=== PATIENT | male | born 1970 | race Caucasian/White ===

== ENCOUNTER 2018-08-08 15:00 | Observation (INO) | payer BC ==
[2018-08-08] MEDS ORDERED: Sodium Chloride 0.9% 1,000 ML IV ONE (15:05)
--- NOTE | 2018-08-08 15:10 | EDM.PDOC ---
ED HPI GENERAL MEDICAL PROBLEM - General Chief Complaint: Chest Pain Stated Complaint: CHEST PAIN Time Seen by Provider: 08/08/18 15:06 Source of Information: Reports: Patient History Limitations: Reports: No Limitations - History of Present Illness INITIAL COMMENTS - FREE TEXT/NARRATIVE: HISTORY AND PHYSICAL: History of present illness: Patient is a 48-year-old male who presents to the emergency room today with complaints of left-sided chest pain 2 days. He states that he had eaten his 's chili and thought he had some indigestion but it has not subsided. He says he has had some slight shortness of breath and dizziness associated with this. States that nothing makes the pain better or worse. He denies any fever, chills, cough, abdominal pain, nausea, vomiting, diarrhea or constipation. No history of smoking. Denies any alcohol or drug abuse. Patient has a past medical history of heart attack 2, pericarditis, hypertension and ADHD. He states he is from [place] and has not seen a credit portfolio advisor in over 7 years. Does not have a primary care provider or credit portfolio advisor here in [place]. Review of systems: As per history of present illness and below otherwise all systems reviewed and negative. Past medical history: As per history of present illness and as reviewed below otherwise noncontributory. Surgical history: As per history of present illness and as reviewed below otherwise noncontributory. Social history: No reported history of drug or alcohol abuse. Family history: As per history of present illness and as reviewed below otherwise noncontributory. Physical exam: General: Well-developed and well-nourished 48-year-old male. Alert and oriented. Nontoxic appearing and in no acute distress. HEENT: Atraumatic, normocephalic, pupils equal and reactive bilaterally, negative for conjunctival pallor or scleral icterus, mucous membranes moist, throat clear, neck supple, nontender, trachea midline. No drooling or trismus noted. No meningeal signs Lungs: Clear to auscultation, breath sounds equal bilaterally, chest nontender. Heart: S1S2, regular rate and rhythm without overt murmur Abdomen: Soft, nondistended, no tenderness to the epigastrium. Negative for masses or hepatosplenomegaly. Negative for costovertebral tenderness. Pelvis: Stable nontender. Genitourinary: Deferred. Rectal: Deferred. Skin: Intact, warm, dry. No lesions or rashes noted. Extremities: Atraumatic, moves all extremities per self without difficulty or deficits, negative for cords or calf pain. Neurovascular unremarkable. Neuro: Awake, alert, oriented. Cranial nerves II through XII unremarkable. Cerebellum unremarkable. Motor and sensory unremarkable throughout. Exam nonfocal. Notes: Patient has an allergy to aspirin. Will give the nitroglycerin at this time. Patient did get relief with the nitroglycerin sublingual. Chest x-ray shows mild elevation of the right hemidiaphragm. Lungs otherwise clear. Heart is normal size. Otherwise negative x-ray without acute disease. Lab work is unremarkable. Vital signs are stable. Patient is unable to take any NSAIDs, per , as he does have an allergic reaction to these. Patient's pain is now a 2 out of 10. Pain was previously a 0 out of 10. Morphine given. He is now pain-free. We discussed admission, patient and at bedside with like to stay overnight for observation. Dr. Luna ( [facility]) as consult did on this case. He is agreeable to keeping this patient overnight. Vital signs remain stable. Denies any further questions or concerns at this time. Diagnostics: CBC, CMP, troponin, EKG, one view chest, h.pylori Therapeutics: IV fluid, nitroglycerin, GI cocktail Impression: Chest pain r/o KS Plan: Observation admission to [facility] with telemetry Definitive disposition and diagnosis as appropriate pending reevaluation and review of above. Duration: Day(s): Location: Reports: Chest Chest Pain Score (Numeric/FACES): 7 - Related Data Allergies Allergy/AdvReac Type Severity Reaction Status Date / Time aspirin Allergy Hives Verified 08/08/18 15:07 Penicillins Allergy Hives Verified 08/08/18 15:07 Home Meds: Home Meds Dextroamphetamine/Amphetamine [Adderall 20 mg Tablet] 20 mg PO BID 08/08/18 [ History] ED ROS GENERAL - Review of Systems Review Of Systems: ROS reveals no pertinent complaints other than HPI. ED EXAM, GENERAL - Physical Exam Exam: See Below (See dictation) Course - Vital Signs Last Recorded V/S: Last Vital Signs Temp 98.1 F 08/08/18 15:04 Pulse 80 08/08/18 15:04 Resp 18 08/08/18 15:04 BP 112/63 08/08/18 15:51 Pulse Ox 98 08/08/18 15:04 - Orders/Labs/Meds Orders: Active Orders 24 hr Category Date Time Status Admission Status [Patient Status] [ADT] Stat ADT 08/08/18 16:13 Ordered EKG Documentation Completion [RC] STAT Care 08/08/18 15:05 Active Chest 1V Frontal [CR] Stat Exams 08/08/18 15:05 Taken Sodium Chloride 0.9% [Normal Saline] 1,000 ml Med 08/08/18 15:05 Active IV STAT Medication Orders Sodium Chloride (Normal Saline) 1,000 mls @ 250 mls/hr IV STAT ONE Stop: 08/08/18 19:04 Last Admin: 08/08/18 15:27 Dose: 250 mls/hr Labs: Laboratory Tests 08/08/18 08/08/18 08/08/18 Range/Units 15:08 15:08 15:08 WBC 14.64 H (4.0-11.0) K/uL RBC 5.24 (4.50-5.90) M/uL Hgb 14.9 (13.0-17.0) g/dL Hct 44.4 (38.0-50.0) % MCV 84.7 (80.0-98.0) fL MCH 28.4 (27.0-32.0) pg MCHC 33.6 (31.0-37.0) g/dL RDW Std Deviation 39.4 (28.0-62.0) fl RDW Coeff of Jacqueline 13 (11.0-15.0) % Plt Count 349 (150-400) K/uL MPV 8.90 (7.40-12.00) fL Neut % (Auto) 68.9 (48.0-80.0) % Lymph % (Auto) 22.3 (16.0-40.0) % [place] % (Auto) 5.4 (0.0-15.0) % Eos % (Auto) 2.8 (0.0-7.0) % Baso % (Auto) 0.6 (0.0-1.5) % Neut # (Auto) 10.1 H (1.4-5.7) K/uL Lymph # (Auto) 3.3 H (0.6-2.4) K/uL [place] # (Auto) 0.8 (0.0-0.8) K/uL Eos # (Auto) 0.4 (0.0-0.7) K/uL Baso # (Auto) 0.1 (0.0-0.1) K/uL Nucleated RBC % 0.0 /100WBC Nucleated RBCs # 0 K/uL Sodium 137 (136-148) mmol/L Potassium 3.9 (3.5-5.1) mmol/L Chloride 101 (98-107) mmol/L Carbon Dioxide 25.8 (21.0-32.0) mmol/L BUN 14 (7.0-18.0) mg/dL Creatinine 1.1 (0.8-1.3) mg/dL Est Cr Clr Drug Dosing 93.82 mL/min Estimated GFR (MDRD) > 60.0 ml/min Glucose 113 H (74-106) mg/dL Calcium 8.9 (8.5-10.1) mg/dL Total Bilirubin 0.3 (0.2-1.0) mg/dL AST 18 (15-37) IU/L ALT 40 (14-63) IU/L Alkaline Phosphatase 113 (46-116) U/L Troponin I < 0.050 (0.000-0.056) ng/mL Total Protein 8.0 (6.4-8.2) g/dL Albumin 3.9 (3.4-5.0) g/dL Globulin 4.1 H (2.0-3.5) g/dL Albumin/Globulin Ratio 1.0 L (1.3-2.8) H. pylori IgG Antibody NEGATIVE (NEG) Meds: Medications Generic Name Dose Route Start Last Admin Trade Name Freq PRN Reason Stop Dose Admin Sodium Chloride 1,000 mls @ 250 mls/hr 08/08/18 15:05 08/08/18 15:27 Normal Saline IV 08/08/18 19:04 250 mls/hr STAT ONE Administration Discontinued Medications Generic Name Dose Route Start Last Admin Trade Name Freq PRN Reason Stop Dose Admin Al Hydroxide/Mg Hydroxide 15 0 ml 08/08/18 15:32 08/08/18 15:46 ml/ Metoclopramide HCl 5 mg/ PO 08/08/18 15:33 1 each Lidocaine HCl 5 ml ONETIME ONE Administration Morphine Sulfate 2 mg 08/08/18 15:58 Morphine IVPUSH 08/08/18 15:59 ONETIME ONE Nitroglycerin 0.4 mg 08/08/18 15:05 08/08/18 15:51 Nitrostat SL 0.4 mg Q5M PRN Administration Chest Pain Departure - Departure Time of Disposition: 16:16 Disposition: Refer to Observation Clinical Impression: Chest pain, rule out acute myocardial infarction Referrals: Mainor Thomson MD [Primary Care Provider] - Forms: ED Department Discharge - My Orders Last 24 Hours: My Active Orders 08/08/18 15:05 EKG Documentation Completion [RC] STAT Chest 1V Frontal [CR] Stat Sodium Chloride 0.9% [Normal Saline] 1,000 ml IV STAT 08/08/18 16:13 Admission Status [Patient Status] [ADT] Stat - Assessment/Plan Last 24 Hours: My Active Orders 08/08/18 15:05 EKG Documentation Completion [RC] STAT Chest 1V Frontal [CR] Stat Sodium Chloride 0.9% [Normal Saline] 1,000 ml IV STAT 08/08/18 16:13 Admission Status [Patient Status] [ADT] Stat
[2018-08-08] MEDS: Nitroglycerin 0.4 MG Tab.SL SL PRN ×3 (15:28→15:51)
[2018-08-08] MEDS ORDERED: Alum Hydrox/Mag Hydrox/Simeth 15 ML, Metoclopramide 5 MG, Lidocaine 2% 5 ML PO ONE ×3 (15:32)
[2018-08-08 15:44] LABS: CHLORIDE,CL 101 mmol/L (98-107); SODIUM,NA 137 mmol/L (136-148)
[2018-08-08] MEDS ORDERED: Morphine 2 MG/ML Syringe IVPUSH ONE (15:58)
[2018-08-08] MEDS ORDERED: Ondansetron 4 MG/2 ML SDV IVPUSH PRN (17:13)
[2018-08-08] MEDS ORDERED: Enoxaparin 40 MG/0.4 ML Syringe SUBCUT ONE (17:13)
[2018-08-08] MEDS ORDERED: Nitroglycerin 0.4 MG Tab.SL SL PRN (17:13)
[2018-08-08] MEDS ORDERED: Acetaminophen 325 MG Tab PO PRN (17:13)
--- NOTE | 2018-08-08 17:22 | PCM.HP ---
H&P History of Present Illness - General Date of Service: 08/08/18 Admit Problem/Dx: Admission Diagnosis/Problem Admission Diagnosis/Problem Chest pain, rule out acute myocardial infarction - History of Present Illness Initial Comments - Free Text/Narative: The patient is a 48-year-old male with history of pericarditis and NC 10 years ago who presented to the ER with chest pain. He reports a left-sided sharp pressure, nonradiating, for the past few days that is pretty much constant but getting worse. He has associated shortness of breath but no diaphoresis or nausea/vomiting. He reports the pain is positional and worse when he lays down flat or takes a deep breath. He denies any fever, chills or cough. He notes that the chest pain, coincides with an increase of stress at work. He reports he's been working 18-20 hour days. In the ER, he was giving her 3 doses of nitroglycerin with little effect. A GI cocktail that did not help and morphine that helped a little bit. In the ER, they also did lab work that showed a negative troponin, negative H. pylori and slightly elevated white count. An EKG showed sinus rhythm with mild ST elevation throughout suggestive of acute pericarditis. Chest x-ray showed mild elevation of the right hemidiaphragm but the lungs were clear and heart was normal in size. Chest Pain Score (Numeric/FACES): 7 - Related Data Allergies/Adverse Reactions: Allergies Allergy/AdvReac Type Severity Reaction Status Date / Time aspirin Allergy Hives Verified 08/08/18 15:07 Penicillins Allergy Hives Verified 08/08/18 15:07 Home Medications: Home Meds Dextroamphetamine/Amphetamine [Adderall 20 mg Tablet] 20 mg PO BID 08/08/18 [ History] Past Medical History HEENT History: Reports: Impaired Vision Other HEENT History: wears glasses Cardiovascular History: Reports: NC, Other (See Below) Other Cardiovascular History: pericarditis Respiratory History: Reports: None Gastrointestinal History: Reports: None Genitourinary History: Reports: None Musculoskeletal History: Reports: None Neurological History: Reports: Concussion Psychiatric History: Reports: ADHD Endocrine/Metabolic History: Reports: None Hematologic History: Reports: None Immunologic History: Reports: None Oncologic (Cancer) History: Reports: None Dermatologic History: Reports: None - Infectious Disease History Infectious Disease History: Reports: Chicken Pox - Past Surgical History GI Surgical History: Reports: Appendectomy Social & Family History - Tobacco Use Smoking Status *Q: Never Smoker - Caffeine Use Caffeine Use: Reports: Coffee, Energy Drinks, Soda, Tea - Alcohol Use Alcohol Use History: Yes Alcohol Use Comment: 6 pack of beer in one month - Recreational Drug Use Recreational Drug Use: No H&P Review of Systems - Review of Systems: Review Of Systems: See Below General: Reports: No Symptoms HEENT: Reports: No Symptoms Pulmonary: Reports: Pleuritic Chest Pain. Denies: Shortness of Breath, Wheezing , Cough Cardiovascular: Reports: Chest Pain. Denies: Palpitations, Orthopnea, Edema Gastrointestinal: Reports: No Symptoms Genitourinary: Reports: No Symptoms Musculoskeletal: Reports: No Symptoms Skin: Reports: No Symptoms Psychiatric: Reports: No Symptoms Neurological: Reports: No Symptoms Hematologic/Lymphatic: Reports: No Symptoms Immunologic: Reports: No Symptoms Exam - Exam Exam: See Below - Vital Signs Vital Signs: Last Vital Signs Temp 98.1 F 08/08/18 15:04 Pulse 80 08/08/18 15:04 Resp 18 08/08/18 15:04 BP 112/63 08/08/18 15:51 Pulse Ox 98 08/08/18 15:04 Weight: 108.862 kg - Exam General: Alert, Oriented, Cooperative HEENT: Conjunctiva Clear, EOMI, Mucosa Moist & [place], Posterior Pharynx Clear, Pupils Equal, Pupils Reactive Lungs: Clear to Auscultation, Normal Respiratory Effort Cardiovascular: Regular Rate, Regular Rhythm GI/Abdominal Exam: Normal Bowel Sounds, Soft, No Distention, Tender (LUQ at ribcage) Extremities: Normal Inspection, No Pedal Edema Skin: Warm, Dry, Intact Neurological: Cranial Nerves Intact Neuro Extensive - Mental Status: Alert, Oriented x3 Psychiatric: Alert, Normal Affect, Normal Mood - Patient Data Lab Results Last 24 hrs: Laboratory Results - last 24 hr 08/08/18 08/08/18 08/08/18 Range/Units 15:08 15:08 15:08 WBC 14.64 H (4.0-11.0) K/uL RBC 5.24 (4.50-5.90) M/uL Hgb 14.9 (13.0-17.0) g/dL Hct 44.4 (38.0-50.0) % MCV 84.7 (80.0-98.0) fL MCH 28.4 (27.0-32.0) pg MCHC 33.6 (31.0-37.0) g/dL RDW Std Deviation 39.4 (28.0-62.0) fl RDW Coeff of Jacqueline 13 (11.0-15.0) % Plt Count 349 (150-400) K/uL MPV 8.90 (7.40-12.00) fL Neut % (Auto) 68.9 (48.0-80.0) % Lymph % (Auto) 22.3 (16.0-40.0) % [place] % (Auto) 5.4 (0.0-15.0) % Eos % (Auto) 2.8 (0.0-7.0) % Baso % (Auto) 0.6 (0.0-1.5) % Neut # (Auto) 10.1 H (1.4-5.7) K/uL Lymph # (Auto) 3.3 H (0.6-2.4) K/uL [place] # (Auto) 0.8 (0.0-0.8) K/uL Eos # (Auto) 0.4 (0.0-0.7) K/uL Baso # (Auto) 0.1 (0.0-0.1) K/uL Nucleated RBC % 0.0 /100WBC Nucleated RBCs # 0 K/uL Sodium 137 (136-148) mmol/L Potassium 3.9 (3.5-5.1) mmol/L Chloride 101 (98-107) mmol/L Carbon Dioxide 25.8 (21.0-32.0) mmol/L BUN 14 (7.0-18.0) mg/dL Creatinine 1.1 (0.8-1.3) mg/dL Est Cr Clr Drug Dosing 93.82 mL/min Estimated GFR (MDRD) > 60.0 ml/min Glucose 113 H (74-106) mg/dL Calcium 8.9 (8.5-10.1) mg/dL Total Bilirubin 0.3 (0.2-1.0) mg/dL AST 18 (15-37) IU/L ALT 40 (14-63) IU/L Alkaline Phosphatase 113 (46-116) U/L Troponin I < 0.050 (0.000-0.056) ng/mL Total Protein 8.0 (6.4-8.2) g/dL Albumin 3.9 (3.4-5.0) g/dL Globulin 4.1 H (2.0-3.5) g/dL Albumin/Globulin Ratio 1.0 L (1.3-2.8) H. pylori IgG Antibody NEGATIVE (NEG) Result Diagrams: 08/08/18 15:08 08/08/18 15:08 Problem List Initiated/Reviewed/Updated: Yes Orders Last 24hrs: Active Orders 24 hr Category Date Time Status Admission Status [Patient Status] [ADT] Stat ADT 08/08/18 16:13 Active EKG Documentation Completion [RC] STAT Care 08/08/18 15:05 Active Intake and Output [RC] ASDIRECTED Care 08/08/18 17:13 Ordered Vital Signs [RC] PER UNIT ROUTINE Care 08/08/18 17:13 Ordered Heart Healthy Diet [DIET] Diet 08/09/18 Breakfast Ordered Chest 1V Frontal [CR] Stat Exams 08/08/18 15:05 Taken BASIC METABOLIC PANEL,BMP [CHEM] AM Lab 08/09/18 05:11 Ordered C-REACTIVE PROTEIN [CHEM] Routine Lab 08/08/18 17:13 Ordered CBC WITH AUTO DIFF [HEME] AM Lab 08/09/18 05:11 Ordered SEDIMENTATION RATE AUTO [HEME] Routine Lab 08/08/18 17:13 Ordered TROPONIN I [CHEM] Routine Lab 08/08/18 23:00 Ordered TROPONIN I [CHEM] Routine Lab 08/09/18 07:00 Ordered Acetaminophen [Tylenol] Med 08/08/18 17:13 Ordered 650 mg PO Q4H PRN Enoxaparin [Lovenox] Med 08/08/18 17:13 Once 40 mg SUBCUT ONETIME ONE Nitroglycerin [Nitrostat] Med 08/08/18 17:13 Ordered 0.4 mg SL Q5M PRN Ondansetron [Zofran] Med 08/08/18 17:13 Ordered 4 mg IVPUSH Q4H PRN Sodium Chloride 0.9% [Normal Saline] 1,000 ml Med 08/08/18 15:05 Active IV STAT Resuscitation Status Routine Resus Stat 08/08/18 17:13 Ordered Medication Orders Acetaminophen (Tylenol) 650 mg PO Q4H PRN PRN Reason: Pain (Mild 1-3)/fever Enoxaparin Sodium (Lovenox) 40 mg SUBCUT ONETIME ONE Stop: 08/08/18 17:14 Sodium Chloride (Normal Saline) 1,000 mls @ 250 mls/hr IV STAT ONE Stop: 08/08/18 19:04 Last Admin: 08/08/18 15:27 Dose: 250 mls/hr Nitroglycerin (Nitrostat) 0.4 mg SL Q5M PRN PRN Reason: Chest Pain Ondansetron HCl (Zofran) 4 mg IVPUSH Q4H PRN PRN Reason: Nausea/Vomiting Assessment/Plan Comment:: 1. Admit for observation 2. Code status- full 3. Vitals per routine 4. I/Os per routine 5. Diet- heart healthy 6. DVT prophylaxis- Lovenox 7. Chest pain, ACS rule out, possible pericarditis- Will palce the patient on telemetry and trend troponins. Will get a ESR and CRP now. Nitro for chest pain. Tylenol and Zofran as needed.
[2018-08-08] MEDS: Morphine 4 MG/ML Syringe IVPUSH PRN (20:04)
[2018-08-09] MEDS: Morphine 4 MG/ML Syringe IVPUSH PRN (00:55)
[2018-08-09 07:44] LABS: CHLORIDE,CL 104 mmol/L (98-107); SODIUM,NA 138 mmol/L (136-148)
--- NOTE | 2018-08-09 11:49 | PCM.PN ---
- General Info Date of Service: 08/09/18 - Review of Systems Systems Review Comment:: He feels better and would like to go home. He still has anterior chest pain worse when supine. He had prior pericarditis with pericardial effusion requiring drainage. - Patient Data Vitals - Most Recent: Last Vital Signs Temp 97.9 F 08/09/18 11:31 Pulse 62 08/09/18 11:31 Resp 16 08/09/18 11:31 BP 121/75 08/09/18 11:31 Pulse Ox 95 08/09/18 11:31 Weight - Most Recent: 108.862 kg I&O - Last 24 Hours: Intake & Output 08/08/18 08/09/18 08/09/18 22:59 06:59 14:59 Intake Total 1500 Output Total 550 Balance 950 Lab Results Last 24 Hours: Laboratory Results - last 24 hr 08/08/18 08/08/18 08/08/18 Range/Units 15:08 15:08 15:08 WBC 14.64 H (4.0-11.0) K/uL RBC 5.24 (4.50-5.90) M/uL Hgb 14.9 (13.0-17.0) g/dL Hct 44.4 (38.0-50.0) % MCV 84.7 (80.0-98.0) fL MCH 28.4 (27.0-32.0) pg MCHC 33.6 (31.0-37.0) g/dL RDW Std Deviation 39.4 (28.0-62.0) fl RDW Coeff of Jacqueline 13 (11.0-15.0) % Plt Count 349 (150-400) K/uL MPV 8.90 (7.40-12.00) fL Neut % (Auto) 68.9 (48.0-80.0) % Lymph % (Auto) 22.3 (16.0-40.0) % [place] % (Auto) 5.4 (0.0-15.0) % Eos % (Auto) 2.8 (0.0-7.0) % Baso % (Auto) 0.6 (0.0-1.5) % Neut # (Auto) 10.1 H (1.4-5.7) K/uL Lymph # (Auto) 3.3 H (0.6-2.4) K/uL [place] # (Auto) 0.8 (0.0-0.8) K/uL Eos # (Auto) 0.4 (0.0-0.7) K/uL Baso # (Auto) 0.1 (0.0-0.1) K/uL Nucleated RBC % 0.0 /100WBC Nucleated RBCs # 0 K/uL ESR (0-14) mm/hr Sodium 137 (136-148) mmol/L Potassium 3.9 (3.5-5.1) mmol/L Chloride 101 (98-107) mmol/L Carbon Dioxide 25.8 (21.0-32.0) mmol/L BUN 14 (7.0-18.0) mg/dL Creatinine 1.1 (0.8-1.3) mg/dL Est Cr Clr Drug Dosing 93.82 mL/min Estimated GFR (MDRD) > 60.0 ml/min Glucose 113 H (74-106) mg/dL Calcium 8.9 (8.5-10.1) mg/dL Total Bilirubin 0.3 (0.2-1.0) mg/dL AST 18 (15-37) IU/L ALT 40 (14-63) IU/L Alkaline Phosphatase 113 (46-116) U/L Troponin I < 0.050 (0.000-0.056) ng/mL C-Reactive Protein (0.00-0.90) mg/dL Total Protein 8.0 (6.4-8.2) g/dL Albumin 3.9 (3.4-5.0) g/dL Globulin 4.1 H (2.0-3.5) g/dL Albumin/Globulin Ratio 1.0 L (1.3-2.8) H. pylori IgG Antibody NEGATIVE (NEG) 08/08/18 08/08/18 08/08/18 Range/Units 15:08 15:08 23:01 WBC (4.0-11.0) K/uL RBC (4.50-5.90) M/uL Hgb (13.0-17.0) g/dL Hct (38.0-50.0) % MCV (80.0-98.0) fL MCH (27.0-32.0) pg MCHC (31.0-37.0) g/dL RDW Std Deviation (28.0-62.0) fl RDW Coeff of Jacqueline (11.0-15.0) % Plt Count (150-400) K/uL MPV (7.40-12.00) fL Neut % (Auto) (48.0-80.0) % Lymph % (Auto) (16.0-40.0) % [place] % (Auto) (0.0-15.0) % Eos % (Auto) (0.0-7.0) % Baso % (Auto) (0.0-1.5) % Neut # (Auto) (1.4-5.7) K/uL Lymph # (Auto) (0.6-2.4) K/uL [place] # (Auto) (0.0-0.8) K/uL Eos # (Auto) (0.0-0.7) K/uL Baso # (Auto) (0.0-0.1) K/uL Nucleated RBC % /100WBC Nucleated RBCs # K/uL ESR 3 (0-14) mm/hr Sodium (136-148) mmol/L Potassium (3.5-5.1) mmol/L Chloride (98-107) mmol/L Carbon Dioxide (21.0-32.0) mmol/L BUN (7.0-18.0) mg/dL Creatinine (0.8-1.3) mg/dL Est Cr Clr Drug Dosing mL/min Estimated GFR (MDRD) ml/min Glucose (74-106) mg/dL Calcium (8.5-10.1) mg/dL Total Bilirubin (0.2-1.0) mg/dL AST (15-37) IU/L ALT (14-63) IU/L Alkaline Phosphatase (46-116) U/L Troponin I < 0.050 (0.000-0.056) ng/mL C-Reactive Protein 0.90 (0.00-0.90) mg/dL Total Protein (6.4-8.2) g/dL Albumin (3.4-5.0) g/dL Globulin (2.0-3.5) g/dL Albumin/Globulin Ratio (1.3-2.8) H. pylori IgG Antibody (NEG) 0908/09/18 08/09/18 Range/Units 06:56 06:56 06:56 WBC 10.07 (4.0-11.0) K/uL RBC 4.75 (4.50-5.90) M/uL Hgb 13.7 (13.0-17.0) g/dL Hct 40.2 (38.0-50.0) % MCV 84.6 (80.0-98.0) fL MCH 28.8 (27.0-32.0) pg MCHC 34.1 (31.0-37.0) g/dL RDW Std Deviation 39.5 (28.0-62.0) fl RDW Coeff of Jacqueline 13 (11.0-15.0) % Plt Count 290 (150-400) K/uL MPV 8.80 (7.40-12.00) fL Neut % (Auto) 61.7 (48.0-80.0) % Lymph % (Auto) 26.1 (16.0-40.0) % [place] % (Auto) 7.5 (0.0-15.0) % Eos % (Auto) 3.9 (0.0-7.0) % Baso % (Auto) 0.8 (0.0-1.5) % Neut # (Auto) 6.2 H (1.4-5.7) K/uL Lymph # (Auto) 2.6 H (0.6-2.4) K/uL [place] # (Auto) 0.8 (0.0-0.8) K/uL Eos # (Auto) 0.4 (0.0-0.7) K/uL Baso # (Auto) 0.1 (0.0-0.1) K/uL Nucleated RBC % 0.0 /100WBC Nucleated RBCs # 0 K/uL ESR (0-14) mm/hr Sodium 138 (136-148) mmol/L Potassium 4.4 (3.5-5.1) mmol/L Chloride 104 (98-107) mmol/L Carbon Dioxide 26.0 (21.0-32.0) mmol/L BUN 12 (7.0-18.0) mg/dL Creatinine 1.0 (0.8-1.3) mg/dL Est Cr Clr Drug Dosing 100.23 mL/min Estimated GFR (MDRD) > 60.0 ml/min Glucose 102 (74-106) mg/dL Calcium 8.6 (8.5-10.1) mg/dL Total Bilirubin (0.2-1.0) mg/dL AST (15-37) IU/L ALT (14-63) IU/L Alkaline Phosphatase (46-116) U/L Troponin I < 0.050 (0.000-0.056) ng/mL C-Reactive Protein (0.00-0.90) mg/dL Total Protein (6.4-8.2) g/dL Albumin (3.4-5.0) g/dL Globulin (2.0-3.5) g/dL Albumin/Globulin Ratio (1.3-2.8) H. pylori IgG Antibody (NEG) Med Orders - Current: Current Medications Acetaminophen (Tylenol) 650 mg PO Q4H PRN PRN Reason: Pain (Mild 1-3)/fever Last Admin: 08/08/18 17:23 Dose: 650 mg Morphine Sulfate (Morphine) 4 mg IVPUSH Q2H PRN PRN Reason: Chest Pain Last Admin: 08/09/18 00:55 Dose: 4 mg Nitroglycerin (Nitrostat) 0.4 mg SL Q5M PRN PRN Reason: Chest Pain Ondansetron HCl (Zofran) 4 mg IVPUSH Q4H PRN PRN Reason: Nausea/Vomiting Prednisone (Prednisone) 40 mg PO WITHBREAKFAST MARTIN Discontinued Medications Al Hydroxide/Mg Hydroxide 15 ml/ Metoclopramide HCl 5 mg/Lidocaine HCl 5 ml 0 ml PO ONETIME ONE Stop: 08/08/18 15:33 Last Admin: 08/08/18 15:46 Dose: 1 each Enoxaparin Sodium (Lovenox) 40 mg SUBCUT ONETIME ONE Stop: 08/08/18 17:14 Last Admin: 08/08/18 17:23 Dose: 40 mg Sodium Chloride (Normal Saline) 1,000 mls @ 250 mls/hr IV STAT ONE Stop: 08/08/18 19:04 Last Admin: 08/08/18 15:27 Dose: 250 mls/hr Morphine Sulfate (Morphine) 2 mg IVPUSH ONETIME ONE Stop: 08/08/18 15:59 Last Admin: 08/08/18 16:20 Dose: 2 mg Nitroglycerin (Nitrostat) 0.4 mg SL Q5M PRN PRN Reason: Chest Pain Last Admin: 08/08/18 15:51 Dose: 0.4 mg - Exam Psy/Mental Status: Alert, Normal Affect Physical Findings Comments:: alert lungs CTA heart RRR without m normal mentation EKG: NSR with slight ST elevation II III AVF slightly increased from yesterday 's EKG; slight upsloping ST elevation precordial leads - Problem List & Annotations (1) Acute pericarditis SNOMED Code(s): 45875742 Code(s): I30.9 - ACUTE PERICARDITIS, UNSPECIFIED Status: Acute Current Visit: Yes - Problem List Review Problem List Initiated/Reviewed/Updated: Yes - My Orders Last 24 Hours: My Active Orders 08/08/18 19:45 Morphine 4 mg IVPUSH Q2H PRN 08/09/18 10:12 EKG 12 Lead [EKG Documentation Completion] [RC] ROUTINE 08/09/18 11:43 TROPONIN I [CHEM] Stat 08/09/18 12:00 predniSONE 40 mg PO WITHBREAKFAST 08/10/18 08:00 Echo 2D wo Cont [US] Urgent 08/11/18 05:11 TROPONIN I [CHEM] AM - Plan Plan:: 1. Admit for observation 2. Code status- full 3. Vitals per routine 4. I/Os per routine 5. Diet- heart healthy 6. DVT prophylaxis- Lovenox 7. Chest pain, ACS rule out, possible pericarditis- Will palce the patient on telemetry and trend troponins. Will get a ESR and CRP now. Nitro for chest pain. Tylenol and Zofran as needed. 08/09/2018 repeat troponin now and in am add prednisone echo tomorrow. possible discharge tomorrow after echo EKG in am Frederick Noonan MD
[2018-08-09] MEDS ORDERED: Morphine 10 MG/ML Syringe IVPUSH PRN (12:15)
[2018-08-09] MEDS: predniSONE 20 MG Tab PO SCH (13:02)
[2018-08-10] MEDS: predniSONE 20 MG Tab PO SCH (09:11)
--- NOTE | 2018-08-10 09:47 | PCM.DCSUM1 ---
Discharge Summary - Hospital Course Brief History: HE was admitted with chest pain and clinical pericarditis. He reported a prior history of severe pericarditis. Diagnosis: Stroke: No - Discharge Data Discharge Date: 08/10/18 Discharge Disposition: Home, Self-Care 01 Condition: Good - Discharge Diagnosis/Problem(s) (1) Acute pericarditis SNOMED Code(s): 31347302 ICD Code: I30.9 - ACUTE PERICARDITIS, UNSPECIFIED Status: Acute Current Visit: Yes - Patient Summary/Data Hospital Course: EKG showed small global ST elevation, with precordial leads showing upsloping ST elevation. He was started on prednisone on August 09. He developed mild HTN after starting prednisone. His serial troponins were normal. EKG on August 09 was similar to admission EKG but showed slightly more ST elevation inferiorly. Further troponins were negative. EKG on the day of discharge shows resolution of ST elevation. His symptoms have resolved at discharge. Echocardiogram was performed the morning of discharge and reading is pending at discharge. IMpression: mild acute pericarditis NSAIDs were not given as he reports allergy prednisone 20 mg daily x 7 days follow up appointment with Dr Ryan lowery Off work until Friday. MD Belkys - Discharge Plan Home Medications: Home Meds Dextroamphetamine/Amphetamine [Adderall 20 mg Tablet] 20 mg PO TID 08/08/18 [ History] Forms: ED Department Discharge Referrals: Mainor Thomson MD [Primary Care Provider] - - Patient Data Vitals - Most Recent: Last Vital Signs Temp 97 F 08/10/18 09:13 Pulse 67 08/10/18 09:13 Resp 18 08/10/18 09:13 BP 156/89 H 08/10/18 09:13 Pulse Ox 95 08/10/18 09:13 Weight - Most Recent: 108.862 kg I&O - Last 24 hours: Intake & Output 08/09/18 08/10/18 08/10/18 22:59 06:59 14:59 Intake Total 1100 1500 Output Total 1305 1975 Balance -205 475 Lab Results - Last 24 hrs: Laboratory Results - last 24 hr 08/09/18 08/09/18 08/10/18 Range/Units 11:51 17:54 05:01 Troponin I < 0.050 < 0.050 < 0.050 (0.000-0.056) ng/mL Med Orders - Current: Current Medications Acetaminophen (Tylenol) 650 mg PO Q4H PRN PRN Reason: Pain (Mild 1-3)/fever Last Admin: 08/08/18 17:23 Dose: 650 mg Morphine Sulfate (Morphine Sulfate) 4 mg IV Q2H PRN PRN Reason: Chest Pain Last Admin: 08/09/18 23:11 Dose: 4 mg Nitroglycerin (Nitrostat) 0.4 mg SL Q5M PRN PRN Reason: Chest Pain Ondansetron HCl (Zofran) 4 mg IVPUSH Q4H PRN PRN Reason: Nausea/Vomiting Prednisone (Prednisone) 40 mg PO WITHBREAKFAST MARTIN Last Admin: 08/10/18 09:11 Dose: 40 mg Discontinued Medications Al Hydroxide/Mg Hydroxide 15 ml/ Metoclopramide HCl 5 mg/Lidocaine HCl 5 ml 0 ml PO ONETIME ONE Stop: 08/08/18 15:33 Last Admin: 08/08/18 15:46 Dose: 1 each Enoxaparin Sodium (Lovenox) 40 mg SUBCUT ONETIME ONE Stop: 08/08/18 17:14 Last Admin: 08/08/18 17:23 Dose: 40 mg Sodium Chloride (Normal Saline) 1,000 mls @ 250 mls/hr IV STAT ONE Stop: 08/08/18 19:04 Last Admin: 08/08/18 15:27 Dose: 250 mls/hr Morphine Sulfate (Morphine) 2 mg IVPUSH ONETIME ONE Stop: 08/08/18 15:59 Last Admin: 08/08/18 16:20 Dose: 2 mg Morphine Sulfate (Morphine) 4 mg IVPUSH Q2H PRN PRN Reason: Chest Pain Last Admin: 08/09/18 00:55 Dose: 4 mg Morphine Sulfate (Morphine) 4 mg IVPUSH Q2H PRN PRN Reason: Chest Pain Nitroglycerin (Nitrostat) 0.4 mg SL Q5M PRN PRN Reason: Chest Pain Last Admin: 08/08/18 15:51 Dose: 0.4 mg
--- NOTE | 2018-08-10 11:00 | CR ---
EXAM DATE: 08/08/18 PATIENT'S AGE: 48 Patient: BETZY BIRD Facility: [place], [place] Site . Site : [id number] Study: XRay Chest [id number]/[id number] 3:25:42 PM Ordering Physician: Doctor Swartz Final Report: INDICATION: Chest pain. TECHNIQUE: AP portable chest x-ray. FINDINGS: Mild elevation right hemidiaphragm. Lungs clear. Heart size normal. Chest otherwise negative without acute disease. Dictated by Viktor Peterson MD @ Aug 08 2018 3:29PM (Electronic Signature) Report Signed by Proxy. WALKER
== END 2018-08-10 11:25 | disposition home or self-care (01) ==
LOC: MW.ED 15:00 → MW.MS 16:13
PROVIDERS: ADMIT Internal Medicine; ATTEND Internal Medicine
DX: I30.9 Acute pericarditis, unspecified (principal); I10 Essential (primary) hypertension; Z88.6 Allergy status to analgesic agent; Z88.0 Allergy status to penicillin
CPT/HCPCS: 36415; 71045; 80048; 80053; 84484; 85025; 85652; 86140; 86677; 93005; 93306; 96361; 96374; 99285; A9270; J1650; J2270; J7040; 96372; 96376; G0378

== ENCOUNTER 2019-06-26 08:13 | Emergency (ER) | payer BC ==
[2019-06-26] MEDS ORDERED: Lidocaine 2% Viscous Solution 15 ML Cup PO ONE (08:32)
[2019-06-26] MEDS ORDERED: Benzocaine 20% Topical Spray UD MUCMEM ONE (08:32)
--- NOTE | 2019-06-26 08:38 | EDM.PDOC ---
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 The patient has a known history of dental issues and has clindamycin at home to use for a broken tooth on the left upper molar area which she has not been able to get fixed. When the swelling started he thought that may be a tooth was involved and he started taking the clindamycin and he has taken 2 doses. He says that after the second dose he thought that the swelling increased and he felt like there was tightness in his throat and some tightness in his chest and he thought maybe he was having allergic reaction and took Benadryl. Because of his history of pericarditis he wanted to come in and be checked. Currently on my evaluation he doesn't feel like there is tightness and has no shortness of breath no abdominal pain nausea or vomiting. He also tells me that he has a history of a salivary gland blockage and thought maybe that should be eating to this. He has no headache no sinus drainage no earache and no lip or tongue swelling. Please note that the patient did not have any chest tightness or discomfort prior to taking the clindamycin. Review of systems: As per history of present illness and below otherwise all systems reviewed and negative. Past medical history: As per history of present illness and as reviewed below otherwise noncontributory. Surgical history: As per history of present illness and as reviewed below otherwise noncontributory. Social history: No reported history of drug or alcohol abuse. Family history: As per history of present illness and as reviewed below otherwise noncontributory. Physical exam: General: Well-developed well-nourished man speaking clearly and easily without hoarse or muffled voice and not breathlessness. Vital signs were noted by me HEENT: Atraumatic, normocephalic, pupils reactive, negative for conjunctival pallor or scleral icterus, mucous membranes moist, throat clear of exudates and there is no oropharyngeal swelling, uvula is midline, there is no cervical adenopathy or nuchal rigidity , neck supple, nontender, trachea midline. there is visible facial swelling of the right maxillary area which is ill-defined and nonfluctuant. There is a broken tooth at the left upper molar area without swelling or fluctuance and in the region of the right upper premolar and molar areas there are some old fillings appreciated and no overt dental breakdown but there is gum swelling and excoriation and swelling of the buccal mucosa in this region. There is no gross tenderness. TMs are slightly dulled bilaterally and there is no overt sinus tenderness Lungs: Clear to auscultation, breath sounds equal bilaterally, chest nontender. Heart: S1S2, regular rate and rhythm no overt murmurs Abdomen: Soft, nondistended, nontender. Negative for masses or hepatosplenomegaly. Negative for costovertebral tenderness. Pelvis: Stable nontender. Genitourinary: Deferred. Rectal: Deferred. Extremities: Atraumatic, no edema Neurovascular unremarkable. Neuro: Awake, alert, oriented. Cranial nerves II through XII unremarkable. Cerebellum unremarkable. Motor and sensory unremarkable throughout. Exam nonfocal. Diagnostics: EKG Therapeutics: I discussed with the patient that if he feels uncomfortable taking the clindamycin that he has we would change his antibiotics. He and his are concerned that he may have had increased swelling as a result of it and there is some discomfort. He does have an allergy to penicillins which cause a rash so I will switch him to a cephalosporin. Impression: Right facial swelling/maxillary swelling, oral infection Definitive disposition and diagnosis as appropriate pending reevaluation and review of above. - Related Data Allergies Allergy/AdvReac Type Severity Reaction Status Date / Time aspirin Allergy Hives Verified 06/26/19 08:18 NSAIDS (Non-Steroidal Allergy Hives Verified 06/26/19 08:18 Anti-Inflamma Penicillins Allergy Hives Verified 06/26/19 08:18 Home Meds: Home Meds Dextroamphetamine/Amphetamine [Adderall 20 mg Tablet] 20 mg PO TID 08/08/18 [ History] Levofloxacin 0 mg PO BID 06/26/19 [History] Past Medical History HEENT History: Reports: Impaired Vision Other HEENT History: wears glasses Cardiovascular History: Reports: [place], Other (See Below) Other Cardiovascular History: pericarditis Respiratory History: Reports: None Gastrointestinal History: Reports: None Genitourinary History: Reports: None Musculoskeletal History: Reports: None Neurological History: Reports: Concussion Psychiatric History: Reports: ADHD Endocrine/Metabolic History: Reports: None Hematologic History: Reports: None Immunologic History: Reports: None Oncologic (Cancer) History: Reports: None Dermatologic History: Reports: None - Infectious Disease History Infectious Disease History: Reports: Chicken Pox - Past Surgical History GI Surgical History: Reports: Appendectomy Social & Family History - Tobacco Use Smoking Status *Q: Never Smoker - Caffeine Use Caffeine Use: Reports: Coffee, Energy Drinks, Soda, Tea - Recreational Drug Use Recreational Drug Use: No ED ROS GENERAL - Review of Systems Review Of Systems: ROS reveals no pertinent complaints other than HPI. ED EXAM, GENERAL - Physical Exam Exam: See Below (See dictation) Course - Vital Signs Last Recorded V/S: Last Vital Signs Temp 37.1 C 06/26/19 08:16 Pulse 64 06/26/19 08:16 Resp 16 06/26/19 08:16 BP 137/90 06/26/19 08:16 Pulse Ox 99 06/26/19 08:16 - Orders/Labs/Meds Orders: Active Orders 24 hr Category Date Time Status EKG Documentation Completion [RC] STAT Care 06/26/19 08:32 Active Meds: Medications Discontinued Medications Generic Name Dose Route Start Last Admin Trade Name Matheus PRN Reason Stop Dose Admin Benzocaine 2 each 06/26/19 08:32 Hurricaine One 20% MUCMEM 06/26/19 08:33 ONETIME ONE Lidocaine HCl 15 ml 06/26/19 08:32 Xylocaine 2% Viscous PO 06/26/19 08:33 ONETIME ONE Departure - Departure Time of Disposition: 08:38 Disposition: Home, Self-Care 01 Condition: Good Clinical Impression: Oral infection - Discharge Information Referrals: PCP,None [Primary Care Provider] - Additional Instructions: The following information is given to patients seen in the emergency department who are being discharged to home. This information is to outline your options for follow-up care. We provide all patients seen in our emergency department with a follow-up referral. The need for follow-up, as well as the timing and circumstances, are variable depending upon the specifics of your emergency department visit. If you don't have a primary care physician on staff, we will provide you with a referral. We always advise you to contact your personal physician following an emergency department visit to inform them of the circumstance of the visit and for follow-up with them and/or the need for any referrals to a consulting specialist. The emergency department will also refer you to a specialist when appropriate. This referral assures that you have the opportunity for followup care with a specialist. All of these measure are taken in an effort to provide you with optimal care, which includes your followup. Under all circumstances we always encourage you to contact your private physician who remains a resource for coordinating your care. When calling for followup care, please make the office aware that this follow-up is from your recent emergency room visit. If for any reason you are refused follow-up, please contact the [facility] emergency department at and ask to speak to the emergency department charge nurse. [facility] Primary care- [place] [address] Ice to face for swelling and continue to use sour candies to promote salivary drainage. Switch the antibiotic to the newly prescribed 1 and contact your provider in the clinic for reevaluation and further care as well as your dentist. Return to ER as needed and as discussed - My Orders Last 24 Hours: My Active Orders 06/26/19 08:32 EKG Documentation Completion [RC] STAT - Assessment/Plan Last 24 Hours: My Active Orders 06/26/19 08:32 EKG Documentation Completion [RC] STAT
== END 2019-06-26 08:55 | disposition home or self-care (01) ==
LOC: MW.ED 08:13
DX: K13.79 Other lesions of oral mucosa (principal); Z88.6 Allergy status to analgesic agent; Z88.0 Allergy status to penicillin; Z88.8 Allergy status to other drugs, medicaments and biological substances; F90.9 Attention-deficit hyperactivity disorder, unspecified type; I25.2 Old myocardial infarction
CPT/HCPCS: 93005; 99283; A9270

== ENCOUNTER 2021-11-17 11:02 | Emergency (ER) | payer BC, OTHER ==
[2021-11-17] MEDS ORDERED: Morphine 4 MG/ML VIAL IVPUSH ONE ×2 (11:31→12:43)
--- NOTE | 2021-11-17 11:31 | EDM.PDOC ---
ED HPI GENERAL MEDICAL PROBLEM - General Chief Complaint: Upper Extremity Injury/Pain Stated Complaint: SMASHED HAND Time Seen by Provider: 11/17/21 11:05 Source of Information: Reports: Patient History Limitations: Reports: No Limitations - History of Present Illness INITIAL COMMENTS - FREE TEXT/NARRATIVE: Patient is a 51-year-old M who presents today for left hand pain and swelling. Patient had a crush injury done yesterday had a laceration repaired. He returns today because the hand is more swollen and the swelling is going down to his mid arm and is also increased redness there as well. He denies any fevers or chills just increased pain. He was told to come back if the swelling got worse. Left Hand Pain Score (Numeric/FACES): 10 - Related Data Allergies Allergy/AdvReac Type Severity Reaction Status Date / Time aspirin Allergy Hives Verified 11/17/21 11:05 NSAIDS (Non-Steroidal Allergy Hives Verified 11/17/21 11:05 Anti-Inflamma Penicillins Allergy Hives Verified 11/17/21 11:05 Home Meds: Home Meds Dextroamphetamine/Amphetamine [Adderall 20 mg Tablet] 20 mg PO TID 08/08/18 [History] Levofloxacin 0 mg PO BID 06/26/19 [History] Clindamycin HCl 150 mg PO DAILY 11/17/21 [History] Hydrocodone/Acetaminophen [Vicodin Hp 10-300 mg Tablet] 352 mg PO DAILY 11/17/21 [History] Past Medical History HEENT History: Reports: Impaired Vision Other HEENT History: wears glasses Cardiovascular History: Reports: [place], Other (See Below) Other Cardiovascular History: pericarditis Respiratory History: Reports: None Gastrointestinal History: Reports: None Genitourinary History: Reports: None Musculoskeletal History: Reports: None Neurological History: Reports: Concussion Psychiatric History: Reports: ADHD Endocrine/Metabolic History: Reports: None Hematologic History: Reports: None Immunologic History: Reports: None Oncologic (Cancer) History: Reports: None Dermatologic History: Reports: None - Infectious Disease History Infectious Disease History: Reports: Chicken Pox - Past Surgical History GI Surgical History: Reports: Appendectomy Social & Family History - Caffeine Use Caffeine Use: Reports: Coffee, Energy Drinks, Soda, Tea - Recreational Drug Use Recreational Drug Use: No Review of Systems - Review of Systems Review Of Systems: See Below Constitutional: Reports: No Symptoms Eyes: Reports: No Symptoms Ears: Reports: No Symptoms Nose: Reports: No Symptoms Mouth/Throat: Reports: No Symptoms Respiratory: Reports: No Symptoms Cardiovascular: Reports: No Symptoms GI/Abdominal: Reports: No Symptoms Genitourinary: Reports: No Symptoms Musculoskeletal: Reports: Hand Pain Skin: Reports: No Symptoms Neurological: Reports: No Symptoms Psychiatric: Reports: No Symptoms ED EXAM, GENERAL - Physical Exam Exam: See Below Exam Limited By: No Limitations General Appearance: Alert, WD/WN, No Apparent Distress Ears: Normal External Exam Head: Atraumatic Neck: Normal Inspection Respiratory/Chest: No Respiratory Distress, Lungs Clear, Normal Breath Sounds Cardiovascular: Normal Peripheral Pulses, Regular Rate, Rhythm Peripheral Pulses: 2+: Radial (L), Radial (R) GI/Abdominal: Normal Bowel Sounds, Soft, Non-Tender Extremities: No: Normal Inspection (Hand has swelling and redness there is sutures in place that were done yesterday on the palm of the hand), Non-Tender (Diffuse tenderness of the hand to the mid forearm) Neurological: Alert, Oriented, Normal Cognition, Normal Gait Course - Vital Signs Last Recorded V/S: Last Vital Signs Temp 98.6 F 11/17/21 11:07 Pulse 76 11/17/21 13:31 Resp 18 11/17/21 11:07 BP 160/92 H 11/17/21 13:31 Pulse Ox 95 11/17/21 13:31 - Orders/Labs/Meds Orders: Active Orders 24 hr Category Date Time Status COVID-19/FLU A+B [MOLEC] Stat Lab 11/17/21 13:11 Ordered CULTURE BLOOD [BC] Stat Lab 11/17/21 11:30 Received CULTURE BLOOD [BC] Stat Lab 11/17/21 11:43 Received Pharmacy to Dose - Vancomycin Med 11/18/21 09:00 Active 1 dose .XX DAILY Blood Culture x2 Reflex Set [OM.PC] Stat Oth 11/17/21 11:27 Ordered Medication Orders Vancomycin HCl (Pharmacy To Dose - Vancomycin) 1 dose .XX DAILY MARTIN Labs: Laboratory Tests 11/17/21 11/17/21 11/17/21 Range/Units 11:30 11:30 11:30 WBC 16.47 H (4.0-11.0) K/uL RBC 4.64 (4.50-5.90) M/uL Hgb 13.4 (13.0-17.0) g/dL Hct 39.6 (38.0-50.0) % MCV 85.3 (80.0-98.0) fL MCH 28.9 (27.0-32.0) pg MCHC 33.8 (31.0-37.0) g/dL RDW Std Deviation 40.7 (28.0-62.0) fl RDW Coeff of Jacqueline 13 (11.0-15.0) % Plt Count 324 (150-400) K/uL MPV 9.00 (7.40-12.00) fL Neut % (Auto) 71.4 (48.0-80.0) % Lymph % (Auto) 14.8 L (16.0-40.0) % Whitman % (Auto) 12.4 (0.0-15.0) % Eos % (Auto) 1.0 (0.0-7.0) % Baso % (Auto) 0.4 (0.0-1.5) % Neut # (Auto) 11.8 H (1.4-5.7) K/uL Lymph # (Auto) 2.4 (0.6-2.4) K/uL Whitman # (Auto) 2.1 H (0.0-0.8) K/uL Eos # (Auto) 0.2 (0.0-0.7) K/uL Baso # (Auto) 0.1 (0.0-0.1) K/uL Nucleated RBC % 0.0 /100WBC Nucleated RBCs # 0 K/uL Sodium 138 (136-148) mmol/L Potassium 4.3 (3.5-5.1) mmol/L Chloride 102 (98-107) mmol/L Carbon Dioxide 27.9 (21.0-32.0) mmol/L BUN 9 (7.0-18.0) mg/dL Creatinine 1.0 (0.8-1.3) mg/dL Est Cr Clr Drug Dosing 97.00 mL/min Estimated GFR (MDRD) > 60.0 ml/min Glucose 128 H (74-106) mg/dL Lactic Acid 1.4 (0.4-2.0) mmol/L Calcium 8.7 (8.5-10.1) mg/dL Phosphorus 3.7 (2.6-4.7) mg/dL Magnesium 2.0 (1.8-2.4) mg/dL Total Bilirubin 0.4 (0.2-1.0) mg/dL AST 24 (15-37) IU/L ALT 44 (14-63) IU/L Alkaline Phosphatase 98 (46-116) U/L Creatine Kinase 318 H (26-308) U/L Total Protein 7.1 (6.4-8.2) g/dL Albumin 3.4 (3.4-5.0) g/dL Globulin 3.7 (2.6-4.0) g/dL Albumin/Globulin Ratio 0.9 (0.9-1.6) Meds: Medications Generic Name Dose Route Start Last Admin Trade Name Freq PRN Reason Stop Dose Admin Vancomycin HCl 1 dose 11/18/21 09:00 Pharmacy To Dose - Vancomycin .XX DAILY MARTIN Discontinued Medications Generic Name Dose Route Start Last Admin Trade Name Freq PRN Reason Stop Dose Admin Vancomycin HCl 1.75 gm/ Premix 350 mls @ 233.333 mls/hr 11/17/21 12:00 11/17/21 12:26 IV 11/17/21 13:29 233.333 mls/hr ONETIME ONE Administration Morphine Sulfate 4 mg 11/17/21 11:31 11/17/21 11:53 Morphine 4 Mg/Ml Vial IVPUSH 11/17/21 11:32 4 mg ONETIME ONE Administration Morphine Sulfate 4 mg 11/17/21 12:43 11/17/21 12:50 Morphine 4 Mg/Ml Vial IVPUSH 11/17/21 12:44 4 mg ONETIME ONE Administration - Re-Assessments/Exams Free Text/Narrative Re-Assessment/Exam: 11/17/21 13:25 We contacted our surgeon here about possible admission and watch patient in case needed fasciotomy he does not feel comfortable with things he needs to be seen somewhere with a hand surgeon we also spoke to the hospitalist here as well. We are attempting to transfer patient currently patient begin antibiotics and pain is well controlled currently 11/17/21 13:38 Patient's been accepted to [facility] and will be transferred orthopedic and ER have are notified. Departure - Departure Time of Disposition: 13:39 Disposition: DC/Tfer to Acute Hospital 02 Condition: Good Clinical Impression: Cellulitis of upper extremity, Crush injury of hand - Discharge Information *PRESCRIPTION DRUG MONITORING PROGRAM REVIEWED*: Not Applicable *COPY OF PRESCRIPTION DRUG MONITORING REPORT IN PATIENT HARRY: Not Applicable Instructions: Crush Injury of the Hand, [id number] Referrals: PCP,None [Primary Care Provider] - Forms: ED Department Discharge Sepsis Event Note (ED) - Evaluation Sepsis Screening Result: No Definite Risk - Focused Exam Vital Signs: Vital Signs Temp Pulse Resp BP Pulse Ox 11/17/21 13:31 76 160/92 H 95 11/17/21 11:07 98.6 F 73 18 151/85 H 96 - My Orders Last 24 Hours: My Active Orders 11/17/21 11:27 Blood Culture x2 Reflex Set [OM.PC] Stat 11/17/21 11:30 CULTURE BLOOD [BC] Stat 11/17/21 11:43 CULTURE BLOOD [BC] Stat 11/17/21 13:11 COVID-19/FLU A+B [MOLEC] Stat 11/18/21 09:00 Pharmacy to Dose - Vancomycin 1 dose .XX DAILY - Assessment/Plan Last 24 Hours: My Active Orders 11/17/21 11:27 Blood Culture x2 Reflex Set [OM.PC] Stat 11/17/21 11:30 CULTURE BLOOD [BC] Stat 11/17/21 11:43 CULTURE BLOOD [BC] Stat 11/17/21 13:11 COVID-19/FLU A+B [MOLEC] Stat 11/18/21 09:00 Pharmacy to Dose - Vancomycin 1 dose .XX DAILY Plan: Patient is a 51-year-old male presents today for left hand pain and swelling. He had a crush injury done yesterday. Patient had the laceration to the hand repair there is now more significant swelling. There is concern for compartment syndrome. Will check pressure start antibiotics give IV pain meds and reasse ss.
[2021-11-17] MEDS ORDERED: VANCOmycin 1.75 GM/350 ML 1.75 GM in Premix Bag 1 BAG IV ONE (12:00)
[2021-11-17 12:04] LABS: BLOOD UREA NITROGEN,BUN 9 mg/dL (7.0-18.0); CARBON DIOXIDE,CO2 27.9 mmol/L (21.0-32.0); CHLORIDE,CL 102 mmol/L (98-107); GLUCOSE RANDOM 128 mg/dL (74-106); POTASSIUM,K 4.3 mmol/L (3.5-5.1); SODIUM,NA 138 mmol/L (136-148)
--- NOTE | 2021-11-17 12:34 | CR ---
HISTORY: Crush injury. COMPARISON: None. TECHNIQUE: Left hand, 3 views. FINDINGS: Soft tissue gas is present, which is compatible with a laceration. This is seen overlying the 2nd metacarpal on the PA view. There is a fracture deformity present at the base of the left 1st distal phalanx. No additional injury is identified. No articular erosion. No periarticular osteopenia. The carpus appears intact. Mild negative ulnar variance. IMPRESSION: 1. Soft tissue swelling/gas, which is suspicious for a laceration. 2. Suspected fracture deformity involving the base of the left 1st distal phalanx. This is only seen on one view. Suggest correlation with physical exam findings. 3. Report called to Dr. Martinez, emergency department, 11/17/2021, 12:30 p.m. Dictated by René Timmons MD @ 11/17/2021 12:34:09 PM (Electronically Signed)
[2021-11-17] MEDS ORDERED: HYDROmorphone 1 MG/ML Syringe IVPUSH ONE ×2 (15:13)
== END 2021-11-17 15:20 ==
LOC: MW.ED 11:02
DX: S67.22XA Crushing injury of left hand, initial encounter (principal); L03.114 Cellulitis of left upper limb; I25.2 Old myocardial infarction; Z88.0 Allergy status to penicillin; Z88.8 Allergy status to other drugs, medicaments and biological substances; W23.0XXA Caught, crushed, jammed, or pinched between moving objects, initial encounter
CPT/HCPCS: 36415; 73130; 80053; 82550; 83605; 83735; 84100; 85025; 87040; 96365; 96366; 96375; 96376; 99285; J1170; J2270; J3370